=== PATIENT | male | born 1940 | race Caucasian/White ===

== ENCOUNTER 2021-01-09 12:50 | Inpatient (IN) | payer MEDICARE ==
[2021-01-09 13:40] LABS: #Eosinphils 0.1 thou/uL (0.0-0.7); #Lymphocytes 1.2 thou/uL (1.20-3.40); #Monocytes 0.5 thou/uL (0.11-0.59); #Neutrophils 6.3 thou/uL (1.40-6.50); %Basophils 0.6 % (0.0-1.0); %Eosinophils 0.9 % (0.0-10.0); %Lymphocytes 14.5 % (21.0-51.0); %Monocytes 6.3 % (0.0-10.0); %Neutrophils 77.7 % (42.0-75.0); Hemoglobin 10.5 g/dL (14.0-18.0); Mean Corpuscular HGB CONC 34.3 g/dL (32.0-36.0); Mean Corpuscular Volume 93.4 fL (78.0-98.0); RBC Distribution Width 13.8 % (11.5-14.5); Red Blood Cell (RBC) Count 3.27 mill/uL (4.70-6.10); White Blood Cell (WBC) Count 8.2 thou/uL (4.8-10.8)
[2021-01-09 13:56] LABS: MDiff Complete? YES; Mean Platelet Volume 9.1 fL (7.4-10.4); Platelet Count 99 thou/uL (130-400); Platelet Morphology Comment Appears Decreased; Polychromasia SLIGHT = 2-3 cells (100X) (0-2/hpf)
[2021-01-09] MEDS ORDERED: Aspirin Chewable 81 MG TAB ONE (13:59)
[2021-01-09] MEDS ORDERED: Nitroglycerin 2% Ointment 1 INCH/1 GM Packet ONE (13:59)
[2021-01-09 14:02] LABS: Albumin 3.9 g/dL (3.4-4.8); Alkaline Phosphatase 56 U/L (40-110); Anion Gap 14 mmol/L (10-20); BUN (Urea Nitrogen) 53 mg/dL (8.4-25.7); Bilirubin, Total 0.5 mg/dL (0.2-1.2); Calc. Creatinine Clearance 0 mL/min (70-130); Calcium 9.2 mg/dL (7.8-10.44); Carbon Dioxide 23 mmol/L (23-31); Chloride 97 mmol/L (98-107); Globulin 2.6 g/dL (2.4-3.5); Glucose 114 mg/dL (83-110); Potassium 3.7 mmol/L (3.5-5.1); Protein, Total 6.5 g/dL (5.8-8.1); Sodium 130 mmol/L (136-145)
[2021-01-09 14:03] LABS: ALT (SGPT) Less than 7 U/L (8-55); AST (SGOT) 8 U/L (5-34); Lipase 18 U/L (8-78)
[2021-01-09 14:06] LABS: Troponin I Less than 0.010 ng/mL (< 0.028)
[2021-01-09] MEDS ORDERED: Ondansetron ODT 4 MG TAB SL PRN (17:00)
[2021-01-09] MEDS: Sodium Chloride 0.9% 1,000 ML IV SCH ×2 (17:00→23:50)
[2021-01-09] MEDS ORDERED: Acetaminophen 325 MG TAB PO PRN (17:00)
[2021-01-09] MEDS ORDERED: Ondansetron PF 4 MG/2 ML Vial IVP PRN (17:00)
[2021-01-09 17:17] VITALS: BMI 21.4
[2021-01-09] MEDS ORDERED: cloNIDine 0.1 MG TAB PO PRN (17:21)
[2021-01-09 17:34] LABS: Troponin I Less than 0.010 ng/mL (< 0.028)
[2021-01-09 19:11] LABS: Troponin I Less than 0.010 ng/mL (< 0.028)
[2021-01-09] MEDS: Ferrous Sulfate 325 MG TAB PO SCH (20:52)
[2021-01-09] MEDS: Carvedilol 25 MG TAB PO SCH (20:58)
[2021-01-09] MEDS: Atorvastatin Calcium 10 MG TAB PO SCH (20:58)
[2021-01-09] MEDS: Isosorbide Dinitrate 20 MG TAB PO SCH (20:59)
[2021-01-09] MEDS ORDERED: hydrALAZINE 25 MG TAB PO SCH (21:00)
[2021-01-09] MEDS ORDERED: Metoprolol Tartrate 25 MG TAB PO SCH (21:00)
[2021-01-10] MEDS: Tamsulosin HCl 0.4 MG CAP PO SCH (08:56)
[2021-01-10] MEDS: Aspirin Chewable 81 MG TAB PO SCH (08:56)
[2021-01-10] MEDS: Carvedilol 25 MG TAB PO SCH ×2 (08:57→19:54)
[2021-01-10] MEDS: hydrALAZINE 25 MG TAB PO SCH ×3 (08:57→19:52)
[2021-01-10] MEDS: Isosorbide Dinitrate 20 MG TAB PO SCH ×3 (08:57→19:54)
[2021-01-10] MEDS: Ferrous Sulfate 325 MG TAB PO SCH ×2 (08:57→19:53)
[2021-01-10] MEDS ORDERED: Patiromer Calcium Sorbitex [Veltassa] 8.4 GM Powd.Pack PO SCH (09:00)
[2021-01-10] MEDS: Atorvastatin Calcium 10 MG TAB PO SCH (19:51)
[2021-01-11 05:32] LABS: #Eosinphils 0.1 thou/uL (0.0-0.7); #Lymphocytes 1.6 thou/uL (1.20-3.40); #Monocytes 0.8 thou/uL (0.11-0.59); #Neutrophils 4.2 thou/uL (1.40-6.50); %Basophils 0.3 % (0.0-1.0); %Eosinophils 0.8 % (0.0-10.0); %Lymphocytes 23.3 % (21.0-51.0); %Monocytes 12.6 % (0.0-10.0); Hemoglobin 9.4 g/dL (14.0-18.0); Mean Corpuscular HGB CONC 33.7 g/dL (32.0-36.0); Mean Corpuscular Volume 94.8 fL (78.0-98.0); Mean Platelet Volume 9.4 fL (7.4-10.4); Platelet Count 90 thou/uL (130-400); Red Blood Cell (RBC) Count 2.93 mill/uL (4.70-6.10); White Blood Cell (WBC) Count 6.7 thou/uL (4.8-10.8)
[2021-01-11 05:45] LABS: ALT (SGPT) Less than 7 U/L (8-55); AST (SGOT) 9 U/L (5-34); Albumin 3.4 g/dL (3.4-4.8); Alkaline Phosphatase 47 U/L (40-110); Anion Gap 15 mmol/L (10-20); BUN (Urea Nitrogen) 53 mg/dL (8.4-25.7); Bilirubin, Total 0.6 mg/dL (0.2-1.2); Calc. Creatinine Clearance 11 mL/min (70-130); Calcium 7.9 mg/dL (7.8-10.44); Carbon Dioxide 19 mmol/L (23-31); Chloride 103 mmol/L (98-107); Globulin 2.4 g/dL (2.4-3.5); Glucose 107 mg/dL (83-110); Potassium 4.1 mmol/L (3.5-5.1); Protein, Total 5.8 g/dL (5.8-8.1); Sodium 133 mmol/L (136-145)
[2021-01-11] MEDS ORDERED: hydrALAZINE 20 MG/ML VIAL SLOW IVP PRN (07:14)
[2021-01-11] MEDS: Ferrous Sulfate 325 MG TAB PO SCH (08:13)
[2021-01-11] MEDS: Tamsulosin HCl 0.4 MG CAP PO SCH (08:14)
[2021-01-11] MEDS: Isosorbide Dinitrate 20 MG TAB PO SCH (08:14)
[2021-01-11] MEDS: hydrALAZINE 25 MG TAB PO SCH (08:14)
[2021-01-11] MEDS: Aspirin Chewable 81 MG TAB PO SCH (08:14)
[2021-01-11] MEDS: Carvedilol 25 MG TAB PO SCH (08:14)
[2021-01-11 11:46] VITALS: BP 142/66; TEMP 99.1
[2021-01-11] MEDS ORDERED: cloNIDine 0.1 MG TAB PO SCH (15:00)
== END 2021-01-11 14:20 | disposition home or self-care (01) | DRG 313 ==
LOC: ERS 12:50 → 2NO 15:11
PROVIDERS: ADMIT Student in an Organized Health Care Education/Training Program; ATTEND Student in an Organized Health Care Education/Training Program
DX: R07.9 Chest pain, unspecified (principal); N18.5 Chronic kidney disease, stage 5; I12.0 Hypertensive chronic kidney disease with stage 5 chronic kidney disease or end stage renal disease; I42.0 Dilated cardiomyopathy; Z66 Do not resuscitate; E78.5 Hyperlipidemia, unspecified; Z95.810 Presence of automatic (implantable) cardiac defibrillator; Z79.899 Other long term (current) drug therapy
CPT/HCPCS: 36415; 71045; 78451; 80053; 83690; 84484; 85025; 85379; 93005; 93306; 94760; A9540